=== PATIENT | female | born 1985 | race Two or more races ===

== ENCOUNTER 2024-01-27 20:00 | Emergency (ER) | payer MEDICAID, SELFPAY ==
[2024-01-27 20:01] VITALS: BMI 36.3
[2024-01-27 20:16] VITALS: BP 150/94; PULSE 78; RESP 18; TEMP 36.6; O2SAT 99
--- NOTE | 2024-01-27 20:27 | XR_ITS ---
Examination: CT brain head without contrast. 2-D sagittal coronal reconstructions Date and time of exam:January 27, 2024 2044 hrs. Indications: Patient slipped and fell today with into the head, head pain CTDI: vol (mGy):52.3 DLP: (mGycm):1028 Technique: Multiple CT axial sections of the brain have been obtained, 5 mm slice thickness. Contrast has not been administered. 2-D sagittal, coronal reconstructions have been obtained Low dose protocols were performed. One or more of the following dose reduction techniques were used; automated exposure control, adjustment of the mA and/or KV according to patient size, use of iterative reconstruction technique. Findings: No significant ventricular enlargement. Intra-axial or extra-axial hemorrhage density is not seen. No mass effect or midline shift Basal cisterns are not remarkable. Fourth ventricle is midline. Cranial vault intact. Impression: Negative for acute hemorrhage, mass effect or midline shift
--- NOTE | 2024-01-27 20:27 | XR_ITS ---
Examination: CT maxillofacial, without intravenous contrast. 2-D sagittal reconstructions. 3-D reconstructions. Date and time of exam:January 27, 20244 hrs. Indications: Patient slipped and fell today with injury to the face, facial pain CTDI: vol (mGy):32 DLP: (mGycm):615 Technique: Multiple axial images of maxillofacial region, 3.0 mm slice thickness. 2-D sagittal and coronal reconstructions. 3-D reconstructions. Low dose protocols were performed. One or more of the following dose reduction techniques were used; automated exposure control, adjustment of the mA and/or KV according to patient size, use of iterative reconstruction technique. Findings: Frontal bone intact No nasal bone fractures Orbital rims intact No depression zygomatic arches Pterygoid plates maxilla and the mandible intact Impression: No acute facial fracture.
--- NOTE | 2024-01-27 20:35 | PD.EDHEAD ---
ED Head Injury RME/HPI General Chief complaint: General Adult/Misc Complain Stated complaint: SLIPPED AND FELL FACE FORWARD, NEG LOC Time Seen by Provider: 01/27/24 20:27 Arrival date/time: 01/27/24 20:00 38F with no significant PMH presents to ED with slip and fall on to face with nosebleed that has stopped. Patient denies LOC, AMS, seizures, N/V, and vision changes. Patient also has mild/small facial abrasions/lacs and has not had a tetanus shot in the past 5 years. Limitations: no limitations Related Data Allergies Allergy/AdvReac Type Severity Reaction Status Date / Time sumatriptan Allergy Intermediate Difficulty Verified 01/27/24 20:03 Swallowing Review of Systems Review of Systems Systems Reviewed: All systems reviewed, normal except as documented Constitutional Constitutional: Reports system reviewed and no additional complaints, except as documented, Denies fever(s) and Denies headache(s) ENT Ears, Nose, Mouth, and Throat: Reports as per HPI, Denies disequilibrium, Reports epistaxis, Denies headache(s), Reports nasal trauma and Reports nose pain Cardiovascular Cardiovascular: Reports system reviewed and no additional complaints, except as documented, Denies chest pain and Denies dyspnea Respiratory Respiratory: Reports system reviewed and no additional complaints, except as documented, Denies cough and Denies dyspnea Gastrointestinal Gastrointestinal: Reports system reviewed and no additional complaints, except as documented, Denies abdominal pain, Denies nausea and Denies vomiting Neurologic Neurologic: Reports system reviewed and no additional complaints, except as documented, Denies confusion, Denies disequilibrium and Denies headache(s) Psychiatric Psychiatric: Denies confusion Past Medical History Social History SMOKING STATUS: Never smoker ED Exam General Limitations: Present no limitations General appearance: Present alert and in no apparent distress Head Head exam: Present atraumatic Eye Eye exam: Present normal appearance, PERRL and EOMI ENT ENT exam: Present normal oropharynx and mucous membranes moist Expanded ENT Exam Nose exam: Present other (swelling, tenderness, bruising) Neck Neck exam: Present normal inspection, full ROM and trachea midline Chest Chest inspection: Present normal inspection and symmetric chest wall rise Respiratory Respiratory exam: Present normal lung sounds bilaterally Cardiovascular Cardiovascular exam: Present regular rate, normal rhythm and normal heart sounds Abdominal Exam Abdominal exam: Present soft and normal bowel sounds Extremities Exam Extremities exam: Present normal inspection and full ROM Back Exam Back exam: Present normal inspection and full ROM Neurological Exam Neurological exam: Present alert, oriented X3 and CN II-XII intact Psychiatric Psychiatric exam: Present normal affect and normal mood Skin Skin exam: Present warm, dry, intact and normal color Course Quality Measures none Orders Category Date Time Status CT facial bones wo con Stat Exams 01/27/24 20:[address] head/brain wo con Stat Exams 01/27/24 20:27 Completed Tet,Diphth,Pertuss(Acell)-Tdap [Boostrix Vacc] Med 01/27/24 20:27 Discontinued 0.5 ml IMI .ONCE ONE Vital Signs Vital signs: Vital Signs Temperature 98 F 01/27/24 20:16 Pulse Rate 78 01/27/24 20:16 Respiratory Rate 18 01/27/24 20:16 Blood Pressure 150/94 H 01/27/24 20:16 Pulse Oximetry (%) 99 01/27/24 20:16 Oxygen Delivery Method Room Air 01/27/24 20:16 O2 at 99% on RA and WNLs Head Injury MDM Narrative MDM Narrative:: 38F with no significant PMH presents to ED with slip and fall on to face with nosebleed that has stopped. Patient denies LOC, AMS, seizures, N/V, and vision changes. Patient also has mild/small facial abrasions/lacs and has not had a tetanus shot in the past 5 years. Physical exam reveals normal pupil response and EOM. ENT clear, but there is nasal swelling, tenderness, and bruising. No septal hematoma. No neck tenderness, ROM intact. Several small abrasions and small lacs on face; all healing. Patient is afebrile, calm, and alert. Tdap given. Wounds cleaned and closed. CT normal. Patient data External records reviewed:: None Clinical information provided by:: patient Social determinants that could affect healthcare access:: none Patient has the following chronic illnesses:: none How is presenting disease/condition affected by chronic disease/condition?: no chronic disease Evaluation data The following diagnostics were reviewed and interpreted by me:: radiology exam(s) Lab and/or radiology exams considered but not ordered:: ordered Interpretation Summary: above Medications / Prescriptions Medications or Prescriptions considered but not ordered:: ordered Medication administrations:: Medication Administration History Discontinued Medications Diphtheria/Tetanus/Acell Pertussis (Diphth,Pertuss(Acell),Tet Vac 0.5 Ml Vial) 0.5 ml IMi .ONCE ONE Stop: 01/27/24 20:28 Last Admin: 01/27/24 20:59 Dose: 0.5 ml Documented By: KG above Consultations Consultation(s) initiated? (list below): No Diagnosis Differential diagnosis head injury: concussion without loss of consciousness, epidural hematoma, closed head injury, subarachnoid hematoma, postconcussion syndrome, subdural hematoma and other (nasal contusion/fx) Most likely diagnosis given after review of the tests above:: nasal contusion Admission Indicated Admission indicated?: not indicated Admission Request Was there a request for admission?: No Disposition Plan Disposition Plan: Discharge Discharge Attestation Discharge Attestation: The patient and all family members were given an opportunity to ask questions and understood the discharge instructions. Discharge instructions specifically effects, indications for sooner follow up or return to the emergency department, and the expected course of current diagnosis. Patient condition: Stable Discharge Plan Plan Patient Disposition: HOME (Self Care) Disposition Comment: Stable Prescriptions/Referrals Referrals: No Primary/Family,Physician [Primary Care Provider] - In 1 week Problem List Clinical Impression: Contusion of nose Patient/Caregiver Discharge Instructions Education Materials: ED Nasal Contusion Additional Instructions: Please follow-up with PCP within 24-48 hours and return immediately if symptoms worsen. Print Language: Belgian Stand Alone Forms: Patient Portal Info Letter NATASHA/JOHN Supervising Physician JAGDEEP Supervising Physician: Dr. Laguna
[2024-01-27] MEDS: DIPHTH,PERTUSS(ACELL),TET VAC 0.5 ML VIAL IMi (20:59)
== END 2024-01-27 22:01 | disposition home or self-care (01) ==
PROVIDERS: Emergency Provider Emergency Medicine
DX: S00.33XA Contusion of nose, initial encounter (principal); W01.0XXA Fall on same level from slipping, tripping and stumbling without subsequent striking against object, initial encounter; S00.81XA Abrasion of other part of head, initial encounter
CPT/HCPCS: 70450; 70486; 90471; 90715; 99284